=== PATIENT | female | born 1995 | race Caucasian/White ===

== ENCOUNTER → 2020-12-28 | Outpatient (CLI) | payer BC ==
--- NOTE | 2020-12-28 15:41 | Diagnostic Imaging Report ---
INDICATION: survey. TECHNIQUE: Multiple real-time grayscale images were obtained over the gravid uterus. COMPARISON: None FINDINGS: There is a single live fetus in a cephalic presentation. Placenta is posterior. heart rate was recorded at 161 bpm. Amniotic fluid volume is normal. There is no previa identified. Cervix is 4.3 cm in length. survey demonstrates kidneys, bladder and stomach to be unremarkable. brain is unremarkable. There is a four-chamber heart. There is a three-vessel cord with normal insertion. spine is unremarkable. Biometrical measurements are as follows: Biparietal 4.55 cm, age 19 weeks 6 days. Head circumference 17.46 cm, age 20 weeks 0 days. Abdominal circumference 14.28 cm, age 19 weeks 5 days. Femur length 3.15 cm, age 19 weeks 6 days. Sonographic estimate age: 19 weeks 6 days. Sonographic estimated date of delivery: 05/18/2021. Estimated Weight: 310 gm (+/- 45 gm). LMP percentile: 46%. heart rate: 161 beats per minute. number: 1 of 1. IMPRESSION: Single live IUP approximately 19 weeks 6 days gestational age with estimated date of confinement sonographically of 05/18/2021. No complicating features are detected. Dictated by: Dictated on workstation # [id number]
== END ==
LOC: RAD 14:30
PROVIDERS: ATTEND Obstetrics & Gynecology
DX: Z34.92 Encounter for supervision of normal pregnancy, unspecified, second trimester (principal); Z3A.19 19 weeks gestation of pregnancy
CPT/HCPCS: 76805

== ENCOUNTER 2021-05-19 07:00 | Inpatient (IN) | payer BC ==
[~2021-05-19] VITALS: Ht 167.7 cm; Wt 101.5 kg
[2021-05-19] VITALS (43 sets, daily range): BP systolic 92–151; BP diastolic 51–90
[2021-05-19] MEDS ORDERED: MINERAL OIL CONCENTRATE 99.9% 15 ML UDC TOP PRN (07:15)
[2021-05-19] MEDS ORDERED: LACTATED RINGERS 1,000 ML IV SCH ×2 (07:15→15:00)
[2021-05-19 08:24] LABS: BASOPHILS % (AUTO) 0 % (0-10); EOSINOPHILS % (AUTO) 0 % (0-10); HEMATOCRIT 33 % (35-52); HEMOGLOBIN 11.6 g/dL (11.5-16.0); LYMPHOCYTES # (AUTO) 1.9 10^3/uL (1.0-4.0); LYMPHOCYTES % (AUTO) 22 % (12-44); MEAN CORPUSCULAR HEMOGLOBIN 31 pg (25-34); MEAN CORPUSCULAR HGB CONC 35 g/dL (32-36); MEAN CORPUSCULAR VOLUME 88 fL (80-99); MEAN PLATELET VOLUME 10.6 fL (9.0-12.2); MONOCYTES # (AUTO) 0.3 10^3/uL (0.0-1.0); MONOCYTES % (AUTO) 4 % (0-12); NEUTROPHILS # (AUTO) 6.4 10^3/uL (1.8-7.8); NEUTROPHILS % (AUTO) 73 % (42-75); PLATELET COUNT 212 10^3/uL (130-400); WHITE BLOOD COUNT 8.8 10^3/uL (4.3-11.0)
[2021-05-19] MEDS ORDERED: MV-M1TAB66 PO (08:39)
[2021-05-19 09:03] LABS: BILIRUBIN,URINE NEGATIVE (NEGATIVE); CLARITY,URINE CLEAR; COLOR,URINE YELLOW; GLUCOSE, URINE (UA) NEGATIVE (NEGATIVE); KETONES,URINE NEGATIVE (NEGATIVE); LEUKOCYTE ESTERASE ,URINE NEGATIVE (NEGATIVE); NITRITE,URINE NEGATIVE (NEGATIVE); PROTEIN,URINE NEGATIVE (NEGATIVE)
[2021-05-19] MEDS: D5 LR IV SOLUTION 1,000 ML IV SCH ×3 (09:03→23:47)
[2021-05-19 09:33] LABS: BACTERIA,URINE NEGATIVE /HPF; SQUAMOUS EPITHELIAL CELL,UR 0-2 /HPF; WBC,URINE RARE /HPF
[2021-05-19] MEDS ORDERED: fentaNYL 2 mcg/ml BUPIVA 0.125 100 ML ONE (14:02)
[2021-05-19] MEDS ORDERED: BUPIVACAINE 0.25% 30 ML (SENSORCAINE) VIAL ONE (14:21)
[2021-05-19] MEDS ORDERED: fentaNYL INJ 100 MCG/2 ML AMP ONE (14:21)
--- NOTE | 2021-05-19 14:26 | History & Physical-OB ---
OB - Chief Complaint & HPI Date/Time Date of Admission: Date of Admission: May 19, 2021 at 07:02 Date seen by a Provider: May 20, 2021 Time Seen by a Provider: 09:00 Chief Complaint/History OB-Reason for Admission/Chief: Induction of Labor Hx : 1 Hx Para: 0 Expected Date of Delivery: May 19, 2021 Gestational Age in Weeks: 40 Gestational Age in Days: 0 Other reason for admission: Plan post dates induction of labor Admission Nurse Assessment Rev: Yes History of Labs B+/- VDRL NR HIV - HBsAg - Rub I Hep C - GBS - Allergies and Home Medications Allergies Coded Allergies: No Known Drug Allergies (Unverified , 05/19/21) Patient Home Medication List Home Medication List Reviewed: Yes Mv-Mn/Iron/FA/Herbal/Digestive ( One Tablet) 1 Each Tablet, 1 EACH PO DAILY, (Reported) Entered as Reported by: LEANN CAREY on 05/19/21 0839 Last Action: New Order OB - History Hx of Present Ultrasounds: Normal mid trimester US Obstetrical Complications: None Medical Complications: None Information Induced Hypertension: No Maternal Gestational Diabetes: No Hemorrhage: No Obstetrical History Hx : 1 Hx Para: 0 Hx # Term Pregnancies: 0 Hx # Pregnancies: 0 Number of Living Children: 0 Patient Past Medical History NC Social History/Family History Alcohol Use: Denies Use Recreational Drug Use: No Smoking Cessation: Never smoker Immunizations Influenza Vaccine Up-to-Date: No; Not Current Tetanus Booster (TDap): Less than 5yrs (02/16) Rubella: immune RPR/VDRL: Negative GBS Status: Negative HBsAG: Negative OB - Admission Exam Physical Exam Vitals: Vital Signs 05/19/21 05/19/21 05/19/21 07:45 10:30 12:28 Temp 36.9 Pulse 65 Resp 18 B/P (MAP) 119/62 (81) Pulse Ox 98 O2 Delivery Room Air Heart: Rhythm Normal Lungs: Clear Abdomen: Gravid Extremities: Edema Reflexes: Normal Cervical Dilatation: 2cm Effacement: 50% Station: -3 Membranes: Intact Heart Rate: 140's Accelerations: Accelerations Present Decelerations: No Decelerations Short Term Variability: Present Care Home Variability: Average (6-25) Contractions on Admission: >10 Minutes Apart Labs Laboratory Tests Test 05/19/21 07:55 05/19/21 08:30 Range/Units White Blood Count 8.8 4.3-11.0 10^3/uL Red Blood Count 3.79 L 3.80-5.11 10^6/uL Hemoglobin 11.6 11.5-16.0 g/dL Hematocrit 33 L 35-52 % Mean Corpuscular Volume 88 80-99 fL Mean Corpuscular Hemoglobin 31 25-34 pg Mean Corpuscular Hemoglobin Concent 35 32-36 g/dL Red Cell Distribution Width 12.1 10.0-14.5 % Platelet Count 212 130-400 10^3/uL Mean Platelet Volume 10.6 9.0-12.2 fL Immature Granulocyte % (Auto) 1 % Neutrophils (%) (Auto) 73 42-75 % Lymphocytes (%) (Auto) 22 12-44 % Monocytes (%) (Auto) 4 0-12 % Eosinophils (%) (Auto) 0 0-10 % Basophils (%) (Auto) 0 0-10 % Neutrophils # (Auto) 6.4 1.8-7.8 10^3/uL Lymphocytes # (Auto) 1.9 1.0-4.0 10^3/uL Monocytes # (Auto) 0.3 0.0-1.0 10^3/uL Eosinophils # (Auto) 0.0 0.0-0.3 10^3/uL Basophils # (Auto) 0.0 0.0-0.1 10^3/uL Immature Granulocyte # (Auto) 0.1 0.0-0.1 10^3/uL Urine Color YELLOW Urine Clarity CLEAR Urine pH 6.0 5-9 Urine Specific [place] 1.010 L 1.016-1.022 Urine Protein NEGATIVE NEGATIVE Urine Glucose (UA) NEGATIVE NEGATIVE Urine Ketones NEGATIVE NEGATIVE Urine Nitrite NEGATIVE NEGATIVE Urine Bilirubin NEGATIVE NEGATIVE Urine Urobilinogen 0.2 < = 1.0 MG/DL Urine Leukocyte Esterase NEGATIVE NEGATIVE Urine RBC (Auto) NEGATIVE NEGATIVE Urine RBC NONE /HPF Urine WBC RARE /HPF Urine Squamous Epithelial Cells 0-2 /HPF Urine Crystals NONE /LPF Urine Bacteria NEGATIVE /HPF Urine Casts NONE /LPF Urine Mucus NEGATIVE /LPF Urine Culture Indicated NO OB - Assessment/Plan/Diagnosis Assessment Assessment: induction of labor Admission Dx 40 week post dates induction Plan cervical ripening and then augmentation as indicated [facility] Admission Status: Inpatient Order (span 2 midnights) Reason for Inpatient Admission: Labor Plan Plan: Induction Induction Method: per Misoprostol Protocol IVANA LANDERS DO May 19, 2021 14:26
[2021-05-19] MEDS: EPIDURAL (fentaNYL 2 MCG/ML BUPIVA 0.125%)100 ML BAG EPI PRN ×2 (14:48→22:50)
[2021-05-19] MEDS ORDERED: NALOXONE 0.4 MG/ML 1 ML (NARCAN) VIAL IV PRN (15:00)
[2021-05-19] MEDS ORDERED: diphenhydrAMINE 50 MG/ML INJ (BENADRYL) IV PRN (15:00)
[2021-05-19] MEDS ORDERED: OXYTOCIN PRE-MIX DRIP 500 ML IV SCH (17:15)
[2021-05-19] MEDS: CATHETER FLUSH 10 ML SYR IV SCH (22:51)
[2021-05-20] VITALS (69 sets, daily range): BP systolic 93–152; BP diastolic 50–86
[2021-05-20] MEDS: ONDANSETRON 4 MG/2 ML (SDV) Z0FRAN IV PRN ×2 (03:01→11:28)
[2021-05-20] MEDS ORDERED: LIDOCAINE 1% INJ 20 ML 20 ML VIAL ONE (07:26)
[2021-05-20] MEDS: D5 LR IV SOLUTION 1,000 ML IV SCH ×3 (07:43→23:19)
[2021-05-20] MEDS: EPIDURAL (fentaNYL 2 MCG/ML BUPIVA 0.125%)100 ML BAG EPI PRN ×2 (14:15→20:51)
[2021-05-20] MEDS ORDERED: FAMOTIDINE 20MG/2ML IV (PEPCID) ONE (15:37)
[2021-05-20] MEDS ORDERED: METOCLOPRAMIDE INJ 10 MG/2 ML (REGLAN) ONE (15:37)
[2021-05-20] MEDS ORDERED: CITRIC ACID/SOB CIT (BICITRA) 30 ML UDC ONE (15:37)
[2021-05-20] MEDS ORDERED: AZITHROMYCIN INJECTION 500 MG/5 ML VIAL ONE (15:38)
[2021-05-20] MEDS ORDERED: ceFAZolin 2 GM IV Premixed 50 ML ONE (15:38)
[2021-05-20] MEDS ORDERED: WATER (STERILE) FOR INJECTION 10 ML ONE (15:41)
[2021-05-20] MEDS ORDERED: fentaNYL INJ 100 MCG/2 ML AMP ONE ×2 (16:04→17:13)
--- NOTE | 2021-05-20 16:12 | OB Triage Report ---
Standard Progress Note Progress Notes/Assess & Plan Date Seen by a Provider: May 20, 2021 Time Seen by a Provider: 15:30 Expected Date of Delivery: May 19, 2021 Gestational Age in Weeks: 40 Gestational Age in Days: 1 LMP/MARILYN Comment: EDC 05/19/2021 Progress/Assessment & Plan Patient has been actively laboring since this morning. She was complete and started pushing at 12:50. Initially pitocin had been stopped as the RN was concerned about something she felt vaginally (was the gonzales bulb) and was then restarted at 1/2 the previous dose (6 mu). Thus it was quite awhile for contractions to be adequate. Regardless, she pushed for 2 1/2 hours effectively. We discussed section at that point, but she was starting to feel more pressure with the epidural wearing off and wanted to try pushing in hands/knees position for awhile longer. After 30-45 minutes she had made little station and states she was "done". Decision made at 1530 to stop pitocin and plan primary section for deep pelvic arrest of labor. well being has been reassuring (category I strip). Risks of section, including, but not limited to, bleeding, infection, injury to bowel, bladder and ureter, injury to the fetus, risk of DVT and complications with anesthesia has been explained and discussed with the patient. Will use prophylactic antibiotics and SCDs. Final Diagnosis 40 week gestation deep pelvic arrest/failure to descend IVANA LANDERS DO May 20, 2021 16:12
[2021-05-20] MEDS ORDERED: AZITHROMYCIN INJECTION 500 MG in NS (IVPB) 250 ML IV ONE (16:15)
[2021-05-20] MEDS ORDERED: KETOROLAC 30 MG/ML VIAL ONE ×2 (17:02→17:48)
[2021-05-20] MEDS ORDERED: ONDANSETRON 4 MG/2 ML (SDV) Z0FRAN ONE (17:02)
[2021-05-20] MEDS ORDERED: OXYTOCIN PRE-MIX DRIP 500 ML IV ONE (17:02)
[2021-05-20] MEDS ORDERED: BUPIVACAINE 0.5% 30 ML (SENSORCAINE) VIAL ONE (17:03)
[2021-05-20] MEDS ORDERED: LIDOCAINE PF 2% 5 ML (XYLOCAINE) VIAL ONE (17:03)
--- NOTE | 2021-05-20 17:40 | Cesarean Section Operative ---
Procedure Procedure Note Pre-operative Diagnosis: Kira silva (24 /Para 1 / 0, Gestational Age40 1/7 weeks, arrest of descent/deep pelvic arrest Post-operative Diagnosis: same, OP presentation, CPD Procedure: primary low transverse section, with J extension of uterine incision, T extension of fascial incision Physician: IVANA LANDERS Anesthesia: epidural Estimated blood loss: 500 mL Disposition: stable Findings: Viable female infant, Apgars 2/5/8, weight 7#10ounces, intact placenta, 3vc, normal appearing uterus, tubes, and ovaries. Indications:Kira silva (24 /Para 1 / 0,Gestational Age 40 1/7 weeks. Procedure Details: The patient was seen in pre-op and the procedure was discussed with the patient in full, including the risks, benefits, and alternatives. All questions were answered. The patient was taken to the operating room and a time out was performed, verifying patient and procedure. After spinal anesthesia was placed by our anesthesia colleagues, the patient was placed in the dorsal supine with leftward tilt for uterine displacement.~ Her abdomen was then prepped and draped in the typical sterile fashion. A Pfannenstiel skin incision was made using a scalpel and carried down through the underlying fascia. The fascia was incised in the midline and tented up using Janelle clamps. On both the inferior and superior fascia side the rectus muscle was dissected off bluntly and sharply using Nunez scissors. The peritoneum was identified and entered bluntly in the midline. This was then stretched laterally using manual strength. After entering the abdominal cavity and confirming lack of intraperitoneal adhesions, a large Anand retractor was placed and the lower uterine segment was visualized. A bladder flap was created with the use of Metzenbaum scissors.~ A scalpel was utilized to make a low transverse uterine incision. Amniotomy was performed with an Allis clamp with return of clear fluid. The 's head was grasped and brought to the level of the incision. Fundal pressure was applied and infant was delivered without difficulty. Mouth and nares were suctioned with bulb suction. After the umbilical cord was clamped and cut, the was handed off to the pediatric staff. A sample of cord blood was then obtained. The placenta was delivered intact via uterine massage. The uterus was exteriorized and cleared of all clots and debris. The uterine incision was closed using 0 Vicryl in a running locked fashion. A second imbricated layer was placed using 0 Vicryl in a running fashion as well. The uterus was flexed forward and the posterior rectouterine space was inspected and cleared of all clots and debris. Again the hysterotomy site was examined and hemostasis was observed. The bilateral tubes and ovaries appeared normal. The uterus was placed back into the abdominal cavity and abdominal gutters were cleared of all clots and debris. A final check of the uterine incision showed it to be hemostatic. The peritoneum was closed using 3-0 Vicryl in a running fashion. The fascia was closed with 0 Vicryl in a running fashion. The subcutaneous space was hemostatic, and irrigated. The subcutaneous space was closed with 3-0 Vicryl in several single interrupted stitches. The skin was then closed using 4-0 Monocryl in a running subcuticular fashion. The skin edges were reapproximated together and were hemostatic. A pressure dressing was applied. All sponge, lap and needle counts were correct at the end of the procedure per nursing. Vitals - Labs Vital Signs - I&O Vital Signs Date Time Temp Pulse Resp B/P (MAP) Pulse Ox O2 Delivery O2 Flow Rate FiO2 05/20/21 08:22 71 18 122/69 (86) 98 Room Air 05/20/21 08:07 70 18 130/67 (88) 99 Room Air 05/20/21 07:52 69 18 121/68 (85) 99 Room Air 05/20/21 07:44 37.0 05/20/21 07:36 71 18 129/64 (85) 99 Room Air 05/20/21 07:21 84 18 122/66 (84) 99 Room Air 05/20/21 07:07 74 18 128/65 (86) 100 Room Air 05/20/21 07:00 81 130/80 (97) 100 05/20/21 06:45 81 130/80 (97) 100 05/20/21 06:30 81 134/60 (84) 100 05/20/21 06:15 66 125/73 (90) 100 05/20/21 06:00 66 125/73 (90) 100 05/20/21 05:45 82 123/56 (78) 100 05/20/21 05:30 68 125/70 (88) 99 05/20/21 05:15 36.1 68 118/62 (80) 99 05/20/21 05:00 59 103/55 (71) 100 05/20/21 04:45 69 93/54 (67) 97 05/20/21 04:30 59 94/52 (66) 97 05/20/21 04:15 65 101/50 (67) 98 05/20/21 04:00 64 99/52 (68) 99 05/20/21 03:45 66 124/59 (80) 100 05/20/21 03:30 37.2 75 118/57 (77) 98 05/20/21 03:15 86 102/56 (71) 99 05/20/21 03:00 87 105/56 (72) 98 05/20/21 02:45 87 117/67 (84) 99 05/20/21 02:30 52 112/57 (75) 97 05/20/21 02:15 53 111/63 (79) 98 05/20/21 02:00 56 116/66 (83) 98 05/20/21 01:45 61 118/65 (82) 99 05/20/21 01:30 36.1 64 116/62 (80) 100 05/20/21 01:15 64 112/60 (77) 98 05/20/21 01:00 65 114/59 (77) 96 05/20/21 00:45 70 110/57 (74) 96 05/20/21 00:30 72 116/57 (76) 96 05/20/21 00:15 67 118/58 (78) 96 05/20/21 00:00 66 115/56 (75) 97 05/19/21 23:45 69 112/56 (74) 98 05/19/21 23:30 36.4 68 97/51 (66) 96 05/19/21 23:15 70 92/51 (65) 96 05/19/21 23:00 66 103/52 (69) 96 05/19/21 22:45 68 102/51 (68) 97 05/19/21 22:30 67 100/51 (67) 97 05/19/21 22:15 67 99/55 (70) 96 05/19/21 22:00 69 112/52 (72) 97 05/19/21 21:45 65 99/54 (69) 96 05/19/21 21:30 70 110/65 (80) 98 05/19/21 21:15 61 106/55 (72) 100 05/19/21 21:00 56 125/57 (79) 100 05/19/21 20:45 55 108/58 (75) 96 05/19/21 20:30 53 119/68 (85) 100 05/19/21 20:15 60 128/73 (91) 93 Room Air 05/19/21 20:00 55 125/74 (91) 99 05/19/21 19:45 57 18 126/62 (83) 99 Room Air 05/19/21 19:30 57 18 115/59 (77) 99 Room Air 05/19/21 19:20 36.6 60 18 115/59 (77) 99 Room Air 05/19/21 18:52 54 18 109/58 (75) 100 Room Air 05/19/21 18:36 65 18 141/74 (96) 99 Room Air 05/19/21 18:19 36.7 05/19/21 17:51 68 18 151/90 (110) 100 Room Air I & O 05/20/21 06:59 Intake Total 3000 ml Balance 3000 ml IVANA LANDERS DO May 20, 2021 17:40
[2021-05-20] MEDS: OXYTOCIN PRE-MIX DRIP 500 ML IV SCH ×2 (17:45→21:13)
[2021-05-20] MEDS ORDERED: morphine INJ 4 MG/ML 1 ML (VIAL/SYRINGE) IV PRN (17:45)
[2021-05-20] MEDS ORDERED: NALOXONE 0.4 MG/ML 1 ML (NARCAN) VIAL IV PRN (17:45)
[2021-05-20] MEDS ORDERED: TETANUS,DIPTH,PERTUSS P/F (BOOSTRIX) 0.5 ML VIAL IM SCH (17:45)
[2021-05-20] MEDS ORDERED: MEASLES,MUMPS,RUBELLA 1 EA INJ SC SCH (17:45)
[2021-05-20] MEDS: CATHETER FLUSH 10 ML SYR IV SCH ×4 (20:50→21:07)
[2021-05-20] MEDS ORDERED: CITRIC ACID/SOB CIT (BICITRA) 30 ML UDC PO ONE (21:00)
[2021-05-20] MEDS ORDERED: DOCUSATE SODIUM 100 MG (COLACE) CAP PO SCH (21:00)
[2021-05-20] MEDS ORDERED: LACTATED RINGERS 1,000 ML IV PRN (21:00)
[2021-05-20] MEDS ORDERED: CATHETER FLUSH 10 ML SYR IV PRN (21:00)
[2021-05-20] MEDS ORDERED: FAMOTIDINE 20MG/2ML IV (PEPCID) IV ONE (21:00)
[2021-05-20] MEDS ORDERED: METOCLOPRAMIDE INJ 10 MG/2 ML (REGLAN) IV ONE (21:00)
[2021-05-20] MEDS: DOCUSATE SODIUM 100 MG (COLACE) CAP PO SCH (21:54)
[2021-05-20] MEDS: ACETAMINOPHEN 500 MG TAB (TYLENOL) PO SCH (21:55)
[2021-05-20] MEDS: KETOROLAC 30 MG/ML VIAL IV SCH ×2 (22:20→23:03)
[2021-05-21] VITALS (8 sets, daily range): BP systolic 116–122; BP diastolic 56–68
[2021-05-21] MEDS: ceFAZolin INJECTION 1,000 MG in NS (IVPB) 50 ML IV SCH ×2 (04:20→11:59)
[2021-05-21] MEDS: CATHETER FLUSH 10 ML SYR IV SCH ×6 (04:20→23:26)
[2021-05-21] MEDS: KETOROLAC 30 MG/ML VIAL IV SCH ×2 (04:20→11:53)
[2021-05-21] MEDS ORDERED: MILK OF MAGNESIA 400 MG/5 ML 30 ML UDC PO PRN (05:00)
[2021-05-21] MEDS: ACETAMINOPHEN 500 MG TAB (TYLENOL) PO SCH ×3 (05:12→23:32)
[2021-05-21 06:01] LABS: BASOPHILS % (AUTO) 0 % (0-10); EOSINOPHILS % (AUTO) 0 % (0-10); HEMATOCRIT 31 % (35-52); HEMOGLOBIN 10.5 g/dL (11.5-16.0); LYMPHOCYTES # (AUTO) 1.6 10^3/uL (1.0-4.0); LYMPHOCYTES % (AUTO) 8 % (12-44); MEAN CORPUSCULAR HEMOGLOBIN 31 pg (25-34); MEAN CORPUSCULAR HGB CONC 34 g/dL (32-36); MEAN CORPUSCULAR VOLUME 90 fL (80-99); MEAN PLATELET VOLUME 10.7 fL (9.0-12.2); MONOCYTES # (AUTO) 1.5 10^3/uL (0.0-1.0); MONOCYTES % (AUTO) 7 % (0-12); NEUTROPHILS # (AUTO) 18.4 10^3/uL (1.8-7.8); NEUTROPHILS % (AUTO) 85 % (42-75); PLATELET COUNT 234 10^3/uL (130-400); WHITE BLOOD COUNT 21.7 10^3/uL (4.3-11.0)
[2021-05-21 06:28] LABS: ATYPICAL LYMPHOCYTES 2 %; BAND NEUTROPHILS 6 %; LYMPHOCYTES % (MANUAL) 9 %; MONOCYTES % (MANUAL) 7 %; NEUTROPHILS % (MANUAL) 76 %; RBC MORPH NORMAL
[2021-05-21] MEDS: DOCUSATE SODIUM 100 MG (COLACE) CAP PO SCH ×2 (09:21→19:41)
[2021-05-21] MEDS ORDERED: SIMETHICONE 80 MG (MYLICON) CHEW PO PRN (09:45)
--- NOTE | 2021-05-21 09:45 | Postpartum Progress Note ---
Post Op Post-operative Day #1 s/p PLTCS. Baby was transferred due to possible respiratory distress. Very difficult extraction due to CPD/impacted head. She has been lightheaded with standing today. Had some pain control issues but after Morphine x 1 she has not had any additional narcotics and states pain control is better today. She would like to be DC today to go to see baby just now eating breakfast, and, though glu is 90, she may be "weak" from lack of diet for 2 days of induction and delivery. Due to possibility of blood loss (Hgb today, though, 10.5) will repeat cbc at 12. If pain controlled, lightheadedness is improved, and still desires to go home today, will dc with strict instructions. Subjective: Patient is without complaints. Ambulating, voiding after gonzales removed. Tolerating a regular diet without nausea or vomiting. Normal lochia. Pain is controlled with oral pain medications. Passing flatus. pumping Objective: 05/21/21 05/21/21 05/21/21 05/21/21 00:04 04:10 07:30 07:55 Temp 36.9 36.5 36.4 36.7 Pulse 71 62 80 72 Resp 16 16 16 16 B/P (MAP) 122/64 (83) 119/58 (78) 116/58 (77) 117/68 (84) Pulse Ox 99 98 100 99 O2 Delivery Room Air Room Air Room Air Room Air 05/21/21 00:00 Intake Total 50 ml Output Total 100 ml Balance -50 ml Laboratory Tests Test 05/21/21 05:19 05/21/21 09:31 Range/Units White Blood Count 21.7 H 4.3-11.0 10^3/uL Red Blood Count 3.43 L 3.80-5.11 10^6/uL Hemoglobin 10.5 L 11.5-16.0 g/dL Hematocrit 31 L 35-52 % Mean Corpuscular Volume 90 80-99 fL Mean Corpuscular Hemoglobin 31 25-34 pg Mean Corpuscular Hemoglobin Concent 34 32-36 g/dL Red Cell Distribution Width 12.3 10.0-14.5 % Platelet Count 234 130-400 10^3/uL Mean Platelet Volume 10.7 9.0-12.2 fL Immature Granulocyte % (Auto) 1 % Neutrophils (%) (Auto) 85 H 42-75 % Lymphocytes (%) (Auto) 8 L 12-44 % Monocytes (%) (Auto) 7 0-12 % Eosinophils (%) (Auto) 0 0-10 % Basophils (%) (Auto) 0 0-10 % Neutrophils # (Auto) 18.4 H 1.8-7.8 10^3/uL Lymphocytes # (Auto) 1.6 1.0-4.0 10^3/uL Monocytes # (Auto) 1.5 H 0.0-1.0 10^3/uL Eosinophils # (Auto) 0.0 0.0-0.3 10^3/uL Basophils # (Auto) 0.0 0.0-0.1 10^3/uL Immature Granulocyte # (Auto) 0.2 H 0.0-0.1 10^3/uL Neutrophils % (Manual) 76 % Lymphocytes % (Manual) 9 % Monocytes % (Manual) 7 % Band Neutrophils 6 % Atypical Lymphocytes 2 % Blood Morphology Comment NORMAL Glucometer 90 70-110 MG/DL Physical Exam: General - Alert and oriented, no apparent distress Abdomen - Soft, appropriately tender to palpation, non-distended, fundus firm at umbilicus Incision - clean, dry and intact; no erythema or induration, no drainage Extremities - no edema, negative Donnell's bilaterally Assessment: 1. post-operative day # 1, status post PLTCs. Recovering well, hemodynamically stable Plan: Routine post-operative care. Encourage breast feeding. Encourage ambulation. VTE prophylaxis: SCDs. Ferrous sulfate supplementation. Plan for discharge today and tomorrow Vitals - Labs Vital Signs - I&O Vital Signs Date Time Temp Pulse Resp B/P (MAP) Pulse Ox O2 Delivery O2 Flow Rate FiO2 05/21/21 07:55 36.7 72 16 117/68 (84) 99 Room Air 05/21/21 07:30 36.4 80 16 116/58 (77) 100 Room Air 05/21/21 04:10 36.5 62 16 119/58 (78) 98 Room Air 05/21/21 00:04 36.9 71 16 122/64 (83) 99 Room Air 05/20/21 20:31 37.2 69 16 117/52 (73) 97 Room Air 05/20/21 19:00 36.8 74 16 129/65 (86) 98 Nasal Cannula 05/20/21 18:45 37.5 16 127/64 (85) 98 Room Air 05/20/21 18:45 Room Air 05/20/21 18:30 38.2 16 120/72 (88) 97 Room Air 05/20/21 18:30 Room Air 05/20/21 18:15 Room Air 05/20/21 18:15 37.6 16 115/68 (84) 94 Room Air 05/20/21 18:00 36.9 16 114/64 (81) 98 Room Air 05/20/21 18:00 Room Air 05/20/21 17:54 Room Air 05/20/21 17:49 37.8 16 107/62 (77) 96 Room Air 05/20/21 16:06 91 18 143/78 (99) 100 Room Air 05/20/21 15:53 87 18 129/62 (84) 100 Room Air 05/20/21 15:21 132/67 (88) Room Air 05/20/21 15:09 83 18 144/67 (92) Room Air 05/20/21 14:22 82 18 134/72 (92) Room Air 05/20/21 14:06 36.6 72 18 125/64 (84) Room Air 05/20/21 13:51 115 18 131/57 (81) Room Air 05/20/21 13:22 82 18 123/61 (81) Room Air 05/20/21 13:07 72 18 120/69 (86) Room Air 05/20/21 12:51 62 18 128/75 (92) Room Air 05/20/21 12:37 84 18 152/78 (102) Room Air 05/20/21 12:28 36.8 05/20/21 12:21 71 18 130/75 (93) Room Air 05/20/21 12:06 69 18 131/86 (101) Room Air 05/20/21 11:52 77 18 128/83 (98) Room Air 05/20/21 11:37 80 18 110/59 (76) 100 Room Air 05/20/21 11:21 82 18 128/70 (89) 100 Room Air 05/20/21 11:07 77 18 130/66 (87) 100 Room Air 05/20/21 10:53 83 18 114/68 (83) 93 Room Air 05/20/21 10:37 77 18 122/63 (82) 100 Room Air 05/20/21 10:22 91 18 107/67 (80) 100 Room Air 05/20/21 10:07 66 18 117/64 (81) 100 Room Air 05/20/21 09:52 71 18 118/69 (85) 100 Room Air I & O 05/21/21 07:00 Intake Total 1050 ml Output Total 100 ml Balance 950 ml Labs Laboratory Tests 05/21/21 05:19: White Blood Count 21.7H, Red Blood Count 3.43L, Hemoglobin 10.5L, Hematocrit 31L , Mean Corpuscular Volume 90, Mean Corpuscular Hemoglobin 31, Mean Corpuscular Hemoglobin Concent 34, Red Cell Distribution Width 12.3, Platelet Count 234, Mean Platelet Volume 10.7, Immature Granulocyte % (Auto) 1, Neutrophils (%) (Auto) 85H, Lymphocytes (%) (Auto) 8L, Monocytes (%) (Auto) 7, Eosinophils (%) (Auto) 0, Basophils (%) (Auto) 0, Neutrophils # (Auto) 18.4H, Lymphocytes # (Auto) 1.6, Monocytes # (Auto) 1.5H, Eosinophils # (Auto) 0.0, Basophils # (Auto) 0.0, Immature Granulocyte # (Auto) 0.2H, Neutrophils % (Manual) 76, Lymphocytes % (Manual) 9, Monocytes % (Manual) 7, Band Neutrophils 6, Atypical Lymphocytes 2, Blood Morphology Comment NORMAL 05/21/21 09:31: Glucometer 90 Microbiology 05/19/21 Urine Culture - Final, Complete 3 or more isolates IVANA LANDERS DO May 21, 2021 09:45
[2021-05-21] MEDS ORDERED: OXC5T PO (09:46)
[2021-05-21] MEDS ORDERED: ACET-93 PO (09:46)
[2021-05-21] MEDS ORDERED: DOCU100C37 PO (09:46)
[2021-05-21] MEDS ORDERED: IBUP-844 PO (09:46)
--- NOTE | 2021-05-21 10:32 | Anesthesia-Regional Post-Op ---
Regional Patient Condition Mental Status: Alert, Oriented x3 Circulation: Same as Pre-Op Headache: Absent Sensation: Full Recovery Motor Block: Absent Post Op Complications Complications None Follow Up Care/Instructions Patient Instructions None needed. Anesthesia/Patient Condition Patient is doing well, no complaints, stable vital signs, no apparent adverse anesthesia problems. No complications reported per nursing. JONATHON COSTA CRNA May 21, 2021 10:32
[2021-05-21 12:11] LABS: BASOPHILS % (AUTO) 0 % (0-10); EOSINOPHILS % (AUTO) 0 % (0-10); HEMATOCRIT 28 % (35-52); HEMOGLOBIN 9.6 g/dL (11.5-16.0); LYMPHOCYTES # (AUTO) 1.9 10^3/uL (1.0-4.0); LYMPHOCYTES % (AUTO) 11 % (12-44); MEAN CORPUSCULAR HEMOGLOBIN 31 pg (25-34); MEAN CORPUSCULAR HGB CONC 34 g/dL (32-36); MEAN CORPUSCULAR VOLUME 89 fL (80-99); MONOCYTES # (AUTO) 1.2 10^3/uL (0.0-1.0); MONOCYTES % (AUTO) 7 % (0-12); NEUTROPHILS # (AUTO) 13.8 10^3/uL (1.8-7.8); NEUTROPHILS % (AUTO) 81 % (42-75); PLATELET COUNT 207 10^3/uL (130-400)
[2021-05-21] MEDS: IBUPROFEN 600 MG (MOTRIN) TAB PO SCH ×2 (18:04→23:32)
[2021-05-22] MEDS: IBUPROFEN 600 MG (MOTRIN) TAB PO SCH (05:38)
[2021-05-22 05:40] VITALS: BP 112/73
--- NOTE | 2021-05-22 08:16 | Discharge Inst-Women's Service ---
Discharge Inst-Women's Serv Depart Medication/Instructions New, Converted or Re-Newed RX: Transmitted to Pharmacy Instructions lifting over 25 [address] no driving for 1 week nothing in the vagina for 4 weeks Final Diagnosis post dates arrest of descent/deep pelvic arrest OP presentation cephalopelvic disproportion acute blood loss anemia Problems Reviewed?: Yes Consults/Follow Up Additional Follow Up: Yes (1 week for incision check (office will call, or you can call on Monday); 6 week post exam) Activity Activity: Activity as Tolerated Driving Instructions: No Driving for 1 Week NO SMOKING: NO SMOKING Nothing Inside Vagina: No Douching, No [place], No Tampons Diet Discharge Diet: No Restrictions Symptoms to Report to : Bleeding Excessive, Pain Increased, Fever Over 101 Degrees F, Vaginal Bleeding Increase, Cramps in Feet or Legs, Vaginal Discharge Foul For Any Problems or Questions: Contact Your Physician Skin/Wound Care Infection Signs and Symptoms: Increased Redness, Foul Odor of Wound, Increased Drainage, Skin Itchy or Has a Rash, Increased Swelling, Temperature Above 101 F Operative Area Clean and Dry: Keep Incision Clean/Dry Stitches/Meredith/Dermabond: Dermabond Bathing Instructions: IVANA Conklin DO May 22, 2021 08:16
[2021-05-22] MEDS ORDERED: FERR-84 PO (08:17)
[2021-05-22] MEDS: DOCUSATE SODIUM 100 MG (COLACE) CAP PO SCH (08:23)
[2021-05-22] MEDS: ACETAMINOPHEN 500 MG TAB (TYLENOL) PO SCH (08:23)
[2021-05-22 08:24] VITALS: BP 116/55
== END 2021-05-22 10:15 | disposition home or self-care (01) | DRG 787 ==
LOC: LDRP 07:02
PROVIDERS: ADMIT Obstetrics & Gynecology; ATTEND Obstetrics & Gynecology
PROC: 10D00Z1 Extraction of Products of Conception, Low, Open Approach (ICD-10-PCS; principal; 2021-05-20 16:12)
DX: O64.0XX0 Obstructed labor due to incomplete rotation of fetal head, not applicable or unspecified (principal); D62 Acute posthemorrhagic anemia; Z3A.40 40 weeks gestation of pregnancy; Z37.0 Single live birth; O62.0 Primary inadequate contractions; O48.0 Post-term pregnancy; O90.81 Anemia of the puerperium
CPT/HCPCS: 36415; 81000; 82947; 85007; 85025; 85027; 86850; 86900; 86901; 87088; 94664

== ENCOUNTER → 2021-09-09 | Outpatient (CLI) | payer BC ==
[~2021-09-09] MED LIST: ACET-93 PO; DOCU100C37 PO; FERR-84 PO; IBUP-844 PO; MV-M1TAB66 PO; OXC5T PO
--- NOTE | 2021-09-09 12:11 | Diagnostic Imaging Report ---
INDICATION: Umbilical hernia PROCEDURE: Ultrasound abdomen complete. TECHNIQUE: Multiple real-time grayscale images were obtained of the abdomen in various projections. FINDINGS: Liver is normal in size. Hepatopetal flow in main portal vein. No biliary duct dilatation. Common bile duct measures 4 mm. There is no cholelithiasis, gallbladder wall thickening or pericholecystic fluid. Spleen is normal. Aorta is nonaneurysmal. IVC is patent. Kidneys normal. No ascites. No obvious intra-abdominal wall hernia is appreciated. IMPRESSION: Unremarkable abdominal ultrasound Dictated by: Dictated on workstation # [id number]
== END ==
LOC: RAD 08:00
PROVIDERS: ATTEND Nurse Practitioner Family
DX: K42.9 Umbilical hernia without obstruction or gangrene (principal)
CPT/HCPCS: 76700